=== PATIENT | male | born 1955 | race Hispanic/Latino ===

== ENCOUNTER 2018-03-07 13:29 | Emergency (ER) | payer MEDICARE, BC ==
[2018-03-07 14:09] LABS: #Basophils 0.1 thou/uL (0.0-0.2); #Eosinphils 0.7 thou/uL (0.0-0.7); #Lymphocytes 2.1 thou/uL (1.20-3.40); #Monocytes 0.9 thou/uL (0.11-0.59); #Neutrophils 10.9 thou/uL (1.40-6.50); %Basophils 0.9 % (0.0-1.0); %Eosinophils 4.8 % (0.0-10.0); %Lymphocytes 14.2 % (21.0-51.0); %Neutrophils 74.1 % (42.0-75.0); Hemoglobin 11.6 g/dL (14.0-18.0); Mean Corpuscular HGB CONC 32.6 g/dL (32.0-36.0); Mean Corpuscular Hemoglobin 34.8 pg (27.0-31.0); Mean Corpuscular Volume 106.7 fL (78.0-98.0); Mean Platelet Volume 6.2 fL (7.4-10.4); Platelet Count 260 thou/uL (130-400); RBC Distribution Width 17.3 % (11.5-14.5); Red Blood Cell (RBC) Count 3.34 mill/uL (4.70-6.10); White Blood Cell (WBC) Count 14.8 thou/uL (4.8-10.8)
[2018-03-07 14:13] LABS: PTT 31.5 SEC (22.9-36.1)
[2018-03-07 14:17] LABS: INR-International Normal Ratio 1.2; Prothrombin Time 15.5 SEC (12.0-14.7)
--- NOTE | 2018-03-07 14:17 | RAD ---
CHEST 1 VIEW: HISTORY: A 62-year-old male with a history of chest pain. FINDINGS: There is bilateral vascular congestion with some interstitial and alveolar parenchymal changes noted in the perihilar regions bilaterally but more prominent on the right side with possibilities includin g that of asymmetric edema or possibly developing right-sided atypical pneumonia or pneumonitis. No significant pleural effusion. No cardiomegaly. NO confluent lobar pneumonia. IMPRESSION: Bilateral vascular congestion with some patchy interstitial and alveolar nodular parenchymal changes primarily in the right lung, evidence for asymmetric pulmonary edema or possibly developing right galina g atypical pneumonia or pneumonitis. These changes are new from the prior 02/12/2018 study. No new c onfluent lobar pneumonia. Atherosclerosis of the aorta. Continued short-term followup. POS: [facility]
[2018-03-07 14:18] LABS: Macrocytosis SLIGHT = 6-15 cells (100X) (0-5/hpf); Manual Diff?? NO
[2018-03-07 14:23] LABS: ALT (SGPT) 27 U/L (8-55); AST (SGOT) 34 U/L (5-34); Albumin 3.3 g/dL (3.4-4.8); Alkaline Phosphatase 79 U/L (40-150); Anion Gap 29 mmol/L (10-20); BUN (Urea Nitrogen) 51 mg/dL (8.4-25.7); Bilirubin, Total 0.6 mg/dL (0.2-1.2); Calc. Creatinine Clearance 0 mL/min (70-130); Calcium 9.9 mg/dL (7.8-10.44); Carbon Dioxide 19 mmol/L (23-31); Chloride 95 mmol/L (98-107); Estimated GFR-MDRD 4; Globulin 4.5 g/dL (2.4-3.5); Glucose 118 mg/dL (80-115); Potassium 3.9 mmol/L (3.5-5.1); Protein, Total 7.8 g/dL (5.8-8.1); Sodium 139 mmol/L (136-145)
[2018-03-07 14:25] LABS: CKMB 1.7 ng/mL (0-6.6); Troponin I 0.023 ng/mL (< 0.028)
[2018-03-07] MEDS ORDERED: Sodium Chloride 0.9% 2,000 ML ONE (14:45)
== END 2018-03-07 14:34 | disposition short-term general hospital (02) ==
LOC: MADERS 13:29
DX: I21.3 ST elevation (STEMI) myocardial infarction of unspecified site (principal); I95.9 Hypotension, unspecified; N18.6 End stage renal disease; R09.02 Hypoxemia; E03.9 Hypothyroidism, unspecified; E66.9 Obesity, unspecified; Z79.899 Other long term (current) drug therapy; Z79.82 Long term (current) use of aspirin
CPT/HCPCS: 71045; 80053; 82553; 83880; 84484; 85025; 85610; 85730; 93005; 94760; J7050